=== PATIENT | female | born 1950 | race Caucasian/White ===

== ENCOUNTER → 2020-01-02 13:24 | Outpatient (BNVA) | payer MEDICARE, SELFPAY | PROVIDERS: Referring Provider Family Medicine; Visit Provider Orthopaedic Surgery | DX: M17.0 Bilateral primary osteoarthritis of knee (principal) | CPT/HCPCS: 73560; 73565 ==

== ENCOUNTER → 2020-05-15 10:37 | Outpatient (BNVA) | payer MEDICARE, SELFPAY | PROVIDERS: Visit Provider Nurse Practitioner Family | DX: Z20.828 Contact with and (suspected) exposure to other viral communicable diseases (principal) | CPT/HCPCS: 87635 ==

== ENCOUNTER 2020-05-19 12:29 | Emergency (ER) | payer MEDICARE, SELFPAY ==
[2020-05-19 12:58] VITALS: BP 173/98; PULSE 76; RESP 18; TEMP 37.9; O2SAT 96; BMI 30.7
--- NOTE | 2020-05-19 13:25 | W.ED.COVID ---
HPI - COVID General: Chief Complaint: COVID symptoms Stated Complaint: COVID +, W/ IN COVID + ROOM Time Seen by Provider: 05/19/20 12:49 Triage information: Has fever, cough or shortness of breath. Exposure to COVID + person last 14 days History of Present Illness: HPI Narrative: The patient is a known Covid positive who tested positive for days ago. She says she has had mild fever and chills at home with a temperature maximum of 100. She says her symptoms are no worse today but her has been having worsening symptoms and she came in to be checked out. She has taken Tylenol for her symptoms with relief of her fevers. Also admits depression and chronic migraines. Has not seen physician for this. Temp 100.3 in ED. MD complaint: known COVID positive Prior covid testing: yes, results known COVID 19 common symptoms: positive fever(s), chills, fatigue, body aches, headache(s) and loss of sense of smell and/or taste; negative cough, non-productive cough, productive cough, dyspnea, throat pain, nasal congestion, nausea, vomiting or diarrhea COVID 19 other sytmptoms: negative chest pain, requiring oxygen, requiring more oxygen, respiratory distress, lethargy, confusion or new neurological complaints Onset (ago): day(s) (7) Severity: mild Treatment prior to arrival: acetaminophen COVID Results: SARS-CoV-2 RNA (RT-PCR) Detected (NOT DETECTED) A 05/15/20 10:37 05/15/20 Review of Systems General: Reports: 10 or more systems reviewed and unremarkable except in HPI and below Const: Reports: fever(s), body aches and fatigue Eyes: Denies: change in vision, blurry vision or eye redness ENMT: Denies: throat pain or nasal congestion Card: Denies: chest pain Resp: Denies: dyspnea, productive cough or non-productive cough GI: Denies: nausea, vomiting or diarrhea : Denies: flank pain, difficulty voiding, urinary frequency or urinary urgency Musc: Denies: neck pain, back pain, extremity pain, joint pain, joint redness, limited range of motion or muscle weakness Skin/Breast: Denies: rash, pruritus, erythema, skin pain or skin tenderness Neuro: Reports: headache(s); Denies: confusion Psych: Denies: anxiety or depression Endo: Denies: polyuria All/Imm: Denies: urticaria, throat swelling or tongue swelling PFSH ED PFSH: Medical History (Updated 05/19/20 @ 14:58 by Riki Estrella MD) Anxiety Hypertension Migraines Family History Father Cancer Mother Dementia Social History Smoking and tobacco status: never smoked Alcohol intake: unknown Marital status: Physical Exam Const: COMMON NORMALS: no acute distress, average body habitus, patient oriented x3, no limitations, healthy appearing, alert and well nourished GENERAL APPEARANCE: cooperative, comfortable, well kempt and well developed ORIENTATION/CONSCIOUSNESS: Yes awake, Yes oriented to person, Yes oriented to place and Yes oriented to time HENMT: COMMON NORMALS: normocephalic, external ears normal and Normal external nose present HEAD & SCALP: normal to inspection and normocephalic NOSE: Normal external nose present EXTERNAL EAR: Yes external ears normal MOUTH: Normal oral and palatal mucosa present THROAT: posterior oropharynx normal Eye: COMMON NORMALS: Equal, round and reactive pupils present and EOMs intact bilaterally GENERAL EYE: appearance normal, both eyes and all related structures PUPIL: Yes Equal, round and reactive pupils present Neck/C-Spine: COMMON NORMALS: full ROM, no lymphadenopathy, no meningeal signs and no JVD GENERAL: Yes normal visual inspection Lymph: LYMPHATIC: no lymphadenopathy noted Chest: COMMONS NORMALS: normal inspection of the chest and normal palpation of entire chest wall Resp: COMMON NORMALS: normal respiratory effort, No retractions, No use of accessory muscles, clear to auscultation bilaterally and percussion normal EFFORT & INSPECTION: Yes able to speak in complete sentences AUSCULTATION: clear to auscultation bilaterally PERCUSSION: percussion normal Cardio: COMMON NORMALS: no JVD, regular rate, regular rhythm, S1 normal heart sound present, S2 normal heart sound present and Peripheral pulses 2+ throughout RATE: regular rate RHYTHM: regular rhythm HEART SOUNDS: S1 normal heart sound present and S2 normal heart sound present PERIPHERAL PULSES: Peripheral pulses 2+ throughout GI: COMMON NORMALS: Normal to inspection, nondistended, normoactive bowel sounds present, Soft to palpation, non-tender and no masses INSPECTION: Yes normal to inspection PALPATION: Yes Soft to palpation : COMMON NORMALS: Yes no CVA tenderness BLADDER/KIDNEY EXAM: Yes no CVA tenderness Back/Pelvis: COMMON NORMALS: no CVA tenderness, thoracic and lumbar spine normal to inspection, no thoracic nor lumbar tenderness and thoraco-lumbar ROM normal Extremity: COMMON NORMALS: normal to inspection, full ROM, capillary refill normal, no joint enlargement and no pedal edema GENERAL: Yes normal exam except as noted Neuro: COMMON NORMALS: patient oriented x3, CN's II-XII intact bilaterally, moves all extremities, no focal motor deficits, no sensory deficits noted and gait normal SENSORIUM/ORIENTATION: Yes alert, Yes oriented to person, Yes oriented to place and Yes oriented to time MENINGEAL SIGNS: Yes no meningeal signs Psych: COMMON NORMALS: mental status grossly normal, Normal thought process present, cooperative, normal affect and speech normal APPEARANCE: Yes well kempt ATTITUDE: Yes calm SPEECH: Yes normal speech THOUGHT PROCESS: Normal thought process present Skin: COMMON NORMALS: no rashes or lesions noted GENERAL SKIN EXAM: no rashes or lesions noted Course Vital Signs: Vital signs: Vital Signs Temperature 99.0 F 05/19/20 14:50 Pulse Rate 69 05/19/20 14:50 Respiratory Rate 18 05/19/20 12:58 Blood Pressure 173/98 05/19/20 12:58 Pulse Oximetry 96 05/19/20 14:50 MDM - COVID MDM Narrative: Medical decision making narrative: The patient is suffering from Covid. Recommended Tylenol and discharged with albuterol and azithromycin. She already takes a chronic steroid so will not give her a Medrol Dosepak. Follow-up with primary care in a couple days and return to the ER with worsening symptoms Lab Data: Labs: Lab Results 05/19/20 05/19/20 05/19/20 Range/Units 13:50 13:50 13:50 WBC 6.7 (4.0-10.0) 10^3/ uL RBC 4.69 (4.1-5.3) 10^6/u L Hgb 14.5 (11.5-15.3) g/dL Hct 45.1 (37.0-47.0) % MCV 96.2 (81-99) fL MCH 30.9 (28.0-34.0) pg MCHC 32.2 (30.0-36.0) g/dL RDW 12.6 (12.1-15.1) % Plt Count 226 (130-400) 10^3/c mm MPV 11.2 H (7.4-10.4) fL Neut % (Auto) 77.5 % Lymph % (Auto) 12.4 % [place] % (Auto) 9.1 % Eos % (Auto) 0.6 % Baso % (Auto) 0.1 % Neut # (Auto) 5.16 (1.8-7.7) 10^3/u L Lymph # (Auto) 0.8 (0.8-4.8) 10^3/u L [place] # (Auto) 0.6 (0.2-0.9) 10^3/u L Eos # (Auto) 0.0 (0.0-0.8) 10^3/u L Baso # (Auto) 0.0 (0.0-0.1) 10^3/u L Nucleated RBC % (a uto) 0 % Nucleated RBCs # 0.0 /100WBC Sodium 138 (136-145) mmol/L Potassium 4.2 (3.5-5.1) mmol/L Chloride 100 (98-107) mmol/L Carbon Dioxide 27 (22-29) mmol/L Anion Gap 15.2 (5-19) BUN 11 (8-23) mg/dL Creatinine 0.8 (0.5-0.9) mg/dL GFR Calculation 70.9 L (90-130) mL/min Glucose 90 (65-115) mg/dL Calculated Osmolal ity 285 (285-295) mOsm/k g Lactic Acid 0.6 (0.5-2.2) mmol/L Calcium 9.0 (8.5-10.5) mg/dL Total Bilirubin 0.4 (0.15-1.2) mg/dL AST 17 (0-32) U/L ALT 10 (0-33) U/L Alkaline Phosphata se 82 (35-105) IU/L Troponin T Gen 5 n g/L (0-10) ng/L Total Protein 7.0 (6.6-8.7) g/dL Albumin 4.6 (3.5-5.2) g/dL Globulin 2.4 (1.3-4.6) g/dL 05/19/20 Range/Units 13:50 WBC (4.0-10.0) 10^3/ uL RBC (4.1-5.3) 10^6/u L Hgb (11.5-15.3) g/dL Hct (37.0-47.0) % MCV (81-99) fL MCH (28.0-34.0) pg MCHC (30.0-36.0) g/dL RDW (12.1-15.1) % Plt Count (130-400) 10^3/c mm MPV (7.4-10.4) fL Neut % (Auto) % Lymph % (Auto) % [place] % (Auto) % Eos % (Auto) % Baso % (Auto) % Neut # (Auto) (1.8-7.7) 10^3/u L Lymph # (Auto) (0.8-4.8) 10^3/u L [place] # (Auto) (0.2-0.9) 10^3/u L Eos # (Auto) (0.0-0.8) 10^3/u L Baso # (Auto) (0.0-0.1) 10^3/u L Nucleated RBC % (a uto) % Nucleated RBCs # /100WBC Sodium (136-145) mmol/L Potassium (3.5-5.1) mmol/L Chloride (98-107) mmol/L Carbon Dioxide (22-29) mmol/L Anion Gap (5-19) BUN (8-23) mg/dL Creatinine (0.5-0.9) mg/dL GFR Calculation (90-130) mL/min Glucose (65-115) mg/dL Calculated Osmolal ity (285-295) mOsm/k g Lactic Acid (0.5-2.2) mmol/L Calcium (8.5-10.5) mg/dL Total Bilirubin (0.15-1.2) mg/dL AST (0-32) U/L ALT (0-33) U/L Alkaline Phosphata se (35-105) IU/L Troponin T Gen 5 n g/L 6 (0-10) ng/L Total Protein (6.6-8.7) g/dL Albumin (3.5-5.2) g/dL Globulin (1.3-4.6) g/dL COVID Results: SARS-CoV-2 RNA (RT-PCR) Detected (NOT DETECTED) A 05/15/20 10:37 05/15/20 Discharge Plan Discharge Patient Disposition: Home Clinical Impression: COVID-19 Condition: Stable Prescriptions: New azithromycin 250 mg tablet 250 mg PO DAILY 4 Days Qty: 4 RF: 0 albuterol sulfate 90 mcg/actuation HFA aerosol inhaler 2 inh inhalation Q6H PRN (Reason: shortness of breath or wheezing) Qty: 8.5 RF: 0 No Action betamethasone acet,sod phos [Celestone Soluspan] 6 mg/mL suspension 6 mg INTRA-NOE ONCE Qty: 1 RF: 0 bupivacaine (PF) 0.5 % (5 mg/mL) solution 5 mg INTRA-NOE ONCE Qty: 2 RF: 0 lidocaine (PF) 10 mg/mL (1 %) solution 10 mg INTRA-NOE ONCE Qty: 2 RF: 0 tizanidine 4 mg tablet 4 mg PO .hs PRNRF: 0 propranolol 10 mg tablet 10 mg PO .hs RF: 0 fluoxetine 40 mg capsule 40 mg PO DAILY RF: 0 lisinopril 20 mg tablet 20 mg PO DAILY RF: 0 cetirizine [Allergy Relief (cetirizine)] 10 mg tablet 5 mg PO DAILY PRNRF: 0 Probiotic 3 billion cell capsule 3,000 mmu cells PO DAILY RF: 0 cranberry 400 mg capsule 400 mg PO DAILY RF: 0 calcium carbonate [Calcium 500] 500 mg calcium (1,250 mg) tablet 500 mg PO DAILY RF: 0 Discharge Orders: Discharge ED (Routine); Ordered 05/19/20 Ordered By: Riki Estrella Discharge Diet: Advance as tolerated Discharge Activity: Resume usual activity Patient Instructions: Upper Respiratory Infection (ED) Activity Restrictions/Additional Instructions: You are suffering from coronavirus. Please continue to take Tylenol and use the albuterol inhaler to help you if you get short of breath. Also take the azithromycin to help in case there is a occult bacterial infection in your chest. Return to the ER with worsening symptoms. Follow-up with your primary care physician in a couple days to monitor improvement of your symptoms Coding Level of Care Code ED [employer] for [employer] Exam Comprehensive
[2020-05-19] MEDS: dexamethasone 4 mg/mL INJ 6 MG IVP (13:31)
[2020-05-19] MEDS: azithromycin 250 mg Tablet 500 MG PO (13:32)
[2020-05-19] MEDS: acetaminophen 500 mg Tablet 1000 MG PO (13:39)
[2020-05-19] MEDS: sodium chloride 0.9% 1,000 ML 500 ML IV (13:40)
--- NOTE | 2020-05-19 14:16 | PC.NURSE ---
Spoke with pt regarding what day her symptoms started, pt states her symptoms started on 05/09/20 and her 's started on 05/08/20. Dr Estrella notified
[2020-05-19 14:28] LABS: Basophils % 0.1 %; Eosinophils % 0.6 %; Hematocrit 45.1 % (37.0-47.0); Hemoglobin 14.5 g/dL (11.5-15.3); Lymphocytes # 0.8 10^3/uL (0.8-4.8); Lymphocytes % 12.4 %; Mean Corpuscular HGB Conc 32.2 g/dL (30.0-36.0); Mean Corpuscular Hemoglobin 30.9 pg (28.0-34.0); Mean Corpuscular Volume 96.2 fL (81-99); Mean Platelet Volume 11.2 fL (7.4-10.4); Monocytes # 0.6 10^3/uL (0.2-0.9); Monocytes % 9.1 %; Neutrophils # 5.16 10^3/uL (1.8-7.7); Neutrophils % 77.5 %; Nucleated Red Blood Cells % 0 %; Platelet Count 226 10^3/cmm (130-400); Red Blood Count 4.69 10^6/uL (4.1-5.3); Red Cell Distribution Width 12.6 % (12.1-15.1); White Blood Count 6.7 10^3/uL (4.0-10.0)
[2020-05-19 14:42] VITALS: O2SAT 96
[2020-05-19 14:45] LABS: Alanine Aminotransferase 10 U/L (0-33); Albumin Level 4.6 g/dL (3.5-5.2); Alkaline Phosphatase 82 IU/L (35-105); Anion Gap 15.2 (5-19); Aspartate Amino Transferase 17 U/L (0-32); Blood Urea Nitrogen 11 mg/dL (8-23); Carbon Dioxide 27 mmol/L (22-29); Chloride 100 mmol/L (98-107); Globulin 2.4 g/dL (1.3-4.6); Glomerular Filtration Rate 70.9 mL/min (90-130); Glucose 90 mg/dL (65-115); Osmolality Calculated 285 mOsm/kg (285-295); Potassium 4.2 mmol/L (3.5-5.1); Sodium 138 mmol/L (136-145); Total Bilirubin 0.4 mg/dL (0.15-1.2)
[2020-05-19 14:46] LABS: Lactic Sepsis W/Reflex 0.6 mmol/L (0.5-2.2); Troponin T (5th) Once 6 ng/L (0-10)
[2020-05-19 14:50] VITALS: PULSE 69; TEMP 37.2; O2SAT 96
[2020-05-19 15:50] VITALS: BP 168/72; PULSE 83; RESP 18; O2SAT 96
== END 2020-05-19 15:50 | disposition home or self-care (01) ==
PROVIDERS: Emergency Provider Family Medicine
DX: U07.1 COVID-19 (principal); I10 Essential (primary) hypertension
CPT/HCPCS: 12345; 80053; 83605; 84484; 85025; 96361; 96374; 99282; 99283; J1100; J7030; Q0144

== ENCOUNTER → 2020-06-13 11:20 | Outpatient (BNVA) | payer MEDICARE, SELFPAY | PROVIDERS: Visit Provider Nurse Practitioner Family | DX: Z20.822 Contact with and (suspected) exposure to COVID-19 (principal) | CPT/HCPCS: 87426 ==